=== PATIENT | male | born 1945 | race Caucasian/White ===

== ENCOUNTER 2019-02-27 06:56 | Day surgery (SDC) | payer BC, MEDICARE ==
[~2019-02-27 06:56] MED LIST: Bupivacaine 0.5% 50 ML MDV ONE; Lidocaine 1% with EPINEPHrine 1:100,000 50 ML MDV ONE
[2019-02-27] MEDS ORDERED: Propofol 200 MG/20 ML SDV ONE (08:14)
[2019-02-27] MEDS ORDERED: Dexamethasone 4 MG/ML SDV ONE (08:14)
[2019-02-27] MEDS ORDERED: fentaNYL 250 MCG/5 ML SDV ONE ×2 (08:14→10:07)
[2019-02-27] MEDS ORDERED: Succinylcholine 200 MG/10 ML MDV ONE (08:14)
[2019-02-27] MEDS ORDERED: Ondansetron 4 MG/2 ML SDV ONE (08:14)
[2019-02-27] MEDS ORDERED: Neostigmine Methylsulfate 1 MG/ML 5 ML Syringe ONE (08:14)
[2019-02-27] MEDS ORDERED: Rocuronium 50 MG/5 ML Vial ONE (08:14)
[2019-02-27] MEDS ORDERED: Glycopyrrolate 0.2 MG/ML 5 ML MDV ONE (08:14)
[2019-02-27] MEDS ORDERED: ceFAZolin 2 GM in Sodium Chloride 0.9% 50 ML IV ONE (08:30)
[2019-02-27] MEDS ORDERED: Sodium Chloride 0.9% 1,000 ML IV SCH (08:30)
[2019-02-27 14:24] VITALS: BP 142/81; PULSE 84
--- NOTE | 2019-03-06 15:04 | OR ---
DATE OF PROCEDURE: 02/27/2019 SURGEON: Emeka Bose MD PROCEDURES: 1. Laparoscopic ventral hernia repair, incarcerated (85818). 2. Component separation with myocutaneous flap, left (71265). 3. Posterior component separation with myocutaneous flap, right (93834). 4. Mesh placement (99890). COMPLICATIONS: None. STEEPLECHASE JOCKEY: None. ANESTHESIA: General. INDICATIONS: A pleasant 73-year-old male with approximately 8 cm midline abdominal hernia requiring repair. The patient was given options including laparoscopic ventral hernia repair, component separation surgery, and traditional open surgery. He has elected this procedure. We discussed risks, benefits, alternatives, and limitations including, but not limited to infection, bleeding, injury to abdominal structures are experienced with the procedure, requirement for reoperation, chronic pain, and other risks not listed here. PROCEDURE IN DETAIL: The patient was placed in an extended position with a break in the bed with arms tucked. The right side would be accessed first in the rectus sheath. In the right upper abdomen, an approximately 15 mm incision was made and carried down between the rectus and the posterior sheath. A Pean was then used to dissect this and creating a potential space. A balloon dilation system was then introduced and the right rectus sheath was dilated under direct visualization. 2 additional 5 mm ports will be placed in the right side between the semilunar line and the midline. Dissection then continued all the way to the pubic bone. At this time, the linea alba was then crossed over and the dissection commenced on the right side. The epigastric arteries would be encountered during this process and preserved. Due to the patient's size, a transversus abdominis release flap would then be created. This plane was then entered also using a sharp scissors. Dissection then continued, and neurovascular bundles would be identified on both sides and preserved. Also during this part of the procedure, the hernia sac could be identified. This was incarcerated and noted to contain omentum. The omentum would not be transected or removed. Once this was deflected back into the abdomen, the posterior rectus sheath and peritoneum would be closed using a Stratafix running suture. The anterior muscular component, the defect in that would also be closed using Stratafix suture, which was [id number]'ing it, then suturing and then suture ligating again. A polypropylene mesh was then placed at approximately 25 cm in size. This was placed and then Tisseel was used to secure this into place. The air was removed. The ports were removed. The fascial defect at the port site was closed with #1 Vicryl suture. Of note, an additional 5 mm port was also placed in the left rectus. The wounds were closed with 3-0 Vicryl and 4-0 Vicryl interrupted running fashion. Dermabond was applied. The patient tolerated the procedure well. Emeka Bose MD /[id number]
== END 2019-02-27 15:20 | disposition home or self-care (01) ==
LOC: JP.SDS 06:56
PROVIDERS: ATTEND Surgery
DX: K45.0 Other specified abdominal hernia with obstruction, without gangrene (principal); E11.9 Type 2 diabetes mellitus without complications; I25.10 Atherosclerotic heart disease of native coronary artery without angina pectoris; I10 Essential (primary) hypertension; E78.5 Hyperlipidemia, unspecified; G47.33 Obstructive sleep apnea (adult) (pediatric); Z99.89 Dependence on other enabling machines and devices; Z79.82 Long term (current) use of aspirin; Z79.899 Other long term (current) drug therapy; Z79.84 Long term (current) use of oral hypoglycemic drugs
CPT/HCPCS: 15734; 49653; C1713; C1781; J0171; J0330; J0690; J1100; J2405; J2704; J2710; J2795; J3010; J3490; J7030; J7050